=== PATIENT | female | born 1985 | race Caucasian/White ===

== ENCOUNTER → 2016-11-17 | Outpatient (CLI) | payer OTHER ==
--- NOTE | 2016-11-17 14:00 | US ---
November 17, [address] Jem Guzman, Thank you for requesting a ultrasound to evaluate anatomy for your patient, Mrs. Wu. As y ou know, Rebeka is a 31 year old G 2, P 1001 with a gil dating 21 w 3 d; GRETA of 08/03 by 6 week ultrasound. Aneuploidy screening was not performed. ULTRASOUND Number of fetuses: 1 Placental location: Posterior; no evidence of previa Placental cord insertion: Intraplacental presentation: Transverse Cervix: 5.0 cm viewed transabdominally Maximum Vertical Pocket: 2.9 cm The adnexa were evaluated. No pathology was seen. Right ovary is visualized and seen as normal. It measures 1.5 x 1.5 x 2.0 cm. Left ovary is not seen on today's ultrasound. MEASUREMENTS: Biparietal diameter: 48 mm 20 weeks, 4 days Head circumference: 186 mm 21 weeks, 0 days Abdominal circumference: 159 mm 21 weeks, 1 days Femur length: 36 mm 21 weeks, 3 days Humerus length: 34 mm 21 weeks, 4 days Transcerebellar diameter: 22 mm 21 weeks, 0 days Average ultrasound age: 21 weeks, 1 days Estimated weight: 399 gm weight percentile: 28% ANATOMY Supratentorial brain: Normal including views of the falx, cavum septum pellucidum and choroids Lateral Ventricle: Normal, measuring 5.6 mm Posterior fossa: Normal including the cerebellum and cisterna magna Spine: Normal Nuchal fold: 5.6 mm normal Face: Normal views of the lip and nose area Profile: Normal Palate: Normal appearance of the alveolar ridge Heart: Four Chamber View: Normal including the intraventricular Septum LVOT: Limited but appears correctly oriented RVOT: Limited but appears correctly oriented 3VV: Normal Tracheal View: Suboptimal Aortic Arch: Seen Ductal Arch: Seen SVC/IVC: Suboptimal Heart Rate 143 bpm Diaphragm: Normal appearance without overt abnormality detected Stomach: Normal Umbilical cord insertion: Normal Right kidney: Normal Left kidney: Normal Bladder: Normal Number of cord vessels: Three Upper extremities: Normal Lower extremities: Normal Gender: Undisclosed IMPRESSION: 1. Intrauterine at 21 w 3 d, ultrasound is consistent with her established GRETA of 03/27/17 . 2. Normal anatomical survey with some limited extended cardiac views 3. Cervical length is normal at 5.0 cm without evidence of insufficiency. RECOMMENDATIONS: I was pleased to review today's ultrasound with your patient, Rebeka. I reassured her that the bab y is growing appropriately with normal amniotic fluid volume. Our detailed review of the anato my did not reveal any overt abnormalities. Some of the extended cardiac views were limited sec ondary to acoustic shadowing and position. Future ultrasound and consultation is left to your clinical discretion. Thank you for allowing us the opportunity to evaluate your patient. Should you have any further ques tions or concerns please do not hesitate to contact me. Low risk; no E&M. Rima De MD Intelligence Senior Sergeant Maternal Medicine Diagnosis Department of Obstetrics & Gynecology [facility]
--- NOTE | 2016-11-17 17:52 | US ---
Ultrasound Obstetric second trimester, greater than 14 weeks Indication: Growth and anatomy evaluation. The estimated gestational age by LMP is 21 weeks and 3 d ays yielding an EDC of March 27, 2017. Comparison: None. Findings: Number: 1 Presentation: Transverse Placental Location: Posterior without previa Cervix: 5 cm MVP: 2.9 cm Heart Rate: 143 bpm. Right ovary measures 2 x 1.5 x 1.5 cm. Left ovary not visualized. Biometry: Biparietal Diameter: 48.02 mm 20 weeks, 4 days Head Circumference: 185.89 mm 21 weeks, 0 days Abdominal Circumference: 158.76 mm 21 weeks, 1 days Femur Length: 35.73 mm 21 weeks, 3 days Humerus Length: 33.80 mm 21 weeks, 4 days Transcerebellar Diameter: 22.39 mm 21 weeks, 0 days HC/AC: 1.17 (1.06-1.25) FL/BPD: 74% FL/AC: 23% Average Ultrasound Age: 21 weeks, 1 days EDC Based on Today's Average Ultrasound Age: March 29, 2017 Estimated weight is 399 gms +/- 58 gms. The estimated weight is at the 28 % based on previous dating. ANATOMY SURVEY: Supratentorial Brain: Normal Posterior Fossa: Normal Spine: Normal Nuchal fold: Normal Nose and Lips: Normal Facial Profile: Normal Heart: Four chamber heart. 143 bpm. Intact intraventricular septum. Cardiac Outflow Tracts: Limited Stomach: Normal Umbilical Cord Insertion: Normal Kidneys: Normal, no pyelectasis Bladder: Normal Number of Cord Vessels: Three Upper Extremities: Visualized Lower Extremities: Visualized. Impression: 1. Living gil in transverse presentation. 2. Size concordant with dates. 3. No overt anomalies detected. Limited cardiac views. 4. Please see Dr. Rima eD's consult and recommendations.
== END ==
LOC: FIMAGING 12:05
PROVIDERS: ATTEND Obstetrics & Gynecology
DX: Z36 Encounter for antenatal screening of mother (principal); Z3A.21 21 weeks gestation of pregnancy

== ENCOUNTER → 2016-12-17 | Outpatient (CLI) | payer OTHER | LOC: FIMAGING 09:32 | PROVIDERS: ATTEND Obstetrics & Gynecology | DX: Z34.82 Encounter for supervision of other normal pregnancy, second trimester (principal); Z3A.25 25 weeks gestation of pregnancy ==

== ENCOUNTER 2017-01-06 13:08 | Observation (INO) | payer OTHER ==
[2017-01-06 14:52] LABS: COLOR YELLOW; LEUKOCYTE ESTERASE,URINE TRACE (NEGATIVE); NITRITE,URINE NEGATIVE (NEGATIVE)
[2017-01-06 15:04] LABS: BACTERIA NONE SEEN /hpf (NONE SEEN); MUCUS NONE SEEN /lpf (NONE-1+); YEAST NONE SEEN /hpf (NONE SEEN)
--- NOTE | 2017-01-06 17:49 | SOAPPROG ---
SOAP Progress Note Assessment/Plan: Assessment: at 28w4d No e/o PPROM No e/o PTL Round ligament pain status reassuring Plan: Discharge home Pending UA/Cx and BV swab Pending GBS fFN was collected but not sent given long/closed cervix and no contractions on toco Return if symptoms do not improve or develops new symptoms Follow-up with Dr. PANDEY as scheduled Belly band for RLP Consider pelvic PT 01/06/17 17:48 01/06/17 17:50 01/06/17 17:56 Subjective: Pt is a healthy at 28w4d, here for leaking fluid x 4 days and new lower pelvic pressure and cramping today, somewhat like a period cramp. No bleeding. Active baby. Fluid she knows is some urine, but also not sure if anything else. Does wear a pad, somewhat yellow in color, no odor, no itching, burning. complicated by: QUIRINOEMANI Kinney N. [id number] 12/24/2016 08:03 AM Page: 10/21 PROBLEM DETAIL Priority Problem Detail PCOS was on metformin through first trimester subclinical hypothyroidism followed by endo history of depression on zoloft, monitor mood closely flu vaccine received Objective: Vitals: Reviewed, WNL FHR: baseline 130-140, moderate heidi, + acc, no decel [place]: no contractions Gen: NAD, alert, AOx4 Abd: gravid, soft. Able to elicit pain in round ligaments with movement of uterus SSE: physiologic discharge. No pool. Cervix closed. TVUS: cervix long/closed, no funnel, 5.76 cm. Vertex Abd US: Active fetus. JOHANN 12.6 cm with DVP = 4.76 cm Micro: Neg fern SVE: long/closed ICD10 Worksheet Patient Problems: Problems Problem Status Onset Round ligament pain Acute
== END 2017-01-06 14:28 | disposition home or self-care (01) ==
LOC: FLD 13:08
PROVIDERS: ADMIT Obstetrics & Gynecology; ATTEND Obstetrics & Gynecology
DX: O26.899 Other specified pregnancy related conditions, unspecified trimester (principal); Z3A.28 28 weeks gestation of pregnancy
CPT/HCPCS: 59025; 76815; G0378

== ENCOUNTER → 2017-01-25 | Outpatient (CLI) | payer OTHER | LOC: FIMAGING 14:35 | PROVIDERS: ATTEND Obstetrics & Gynecology | DX: O36.63X1 Maternal care for excessive fetal growth, third trimester, fetus 1 (principal); Z3A.31 31 weeks gestation of pregnancy; Z87.59 Personal history of other complications of pregnancy, childbirth and the puerperium ==

== ENCOUNTER 2017-02-16 16:44 | Observation (INO) | payer OTHER | END 2017-02-16 19:28 | disposition home or self-care (01) | LOC: FLD 16:44 | PROVIDERS: ADMIT Midwife; ATTEND Midwife | DX: O76 Abnormality in fetal heart rate and rhythm complicating labor and delivery (principal); Z3A.00 Weeks of gestation of pregnancy not specified | CPT/HCPCS: G0378 ×2 ==

== ENCOUNTER → 2017-03-09 | Outpatient (CLI) | payer OTHER | LOC: FIMAGING 13:04 | PROVIDERS: ATTEND Obstetrics & Gynecology | DX: Z34.93 Encounter for supervision of normal pregnancy, unspecified, third trimester (principal); Z3A.37 37 weeks gestation of pregnancy ==

== ENCOUNTER 2017-03-21 17:00 | Inpatient (IN) | payer OTHER ==
[2017-03-21] MEDS ORDERED: IBUPROFEN 600 MG TAB PO PRN (17:09)
[2017-03-21] MEDS ORDERED: OLIVE OIL 118 ML BTL MISC PRN (17:09)
[2017-03-21] MEDS ORDERED: OXYTOCIN/RINGERS LACTATE 1,000 ML IV PRN (17:09)
[2017-03-21] MEDS ORDERED: LR 1,000 ML IV PRN (17:09)
[2017-03-21] MEDS ORDERED: TERBUTALINE SULFATE 1 MG/ML VIAL IV PRN (17:09)
[2017-03-21] MEDS ORDERED: EPSOM SALT 454 GM TP PRN (17:09)
[2017-03-21] MEDS ORDERED: ZOLPIDEM TARTRATE 5 MG TAB PO PRN (18:16)
[2017-03-21] MEDS ORDERED: diphenhydrAMINE 25 MG CAP PO PRN (18:16)
--- NOTE | 2017-03-21 18:20 | OBPROG ---
OBG Labor Progress Note Assessment/Plan: Assessment: at 39w2d here for elective IOL status reassuring GBS neg See scanned H&P for full details of care Plan: Admit to L&D FB placed Start pitocin at 0500 Routine orders 03/21/17 18:18 Subjective: Ready for induction. History of 9# baby and this baby's head was already measuring 41 weeks so she is nervous about the size. Objective: VS reviewed, WNL Gen: NAD Resp: unlabored CV: RRR Abd: gravid, soft, nontender, vertex and 9# by brad's SVE: /-2/vtx/intact FB placed 30 ml NS Moore Current Contraction Pattern: Irregular FHR (bpm): 120 FHR Pattern Variability: Moderate FHR Category: 1 Membranes: Intact Oxytocin Orders Assessment - Pre-Induction/Augmentation Assessment Gestational Age: 39 week(s) and 1 day(s) ICD10 Worksheet Patient Problems: Problems Problem Status Onset Elective induction of labor planned Acute - ICD10 Problem Qualifiers (1) Elective induction of labor planned
[2017-03-21 18:28] LABS: % IMMATURE GRANULYOCYTES 0.8 % (0.0-1.1); ABSOLUTE IMMATURE GRANULOCYTES 0.11 10^3/uL (0.00-0.10); ADD DIFF? NO; ADD MORPH? NO; ADD SCAN? NO; ATYPICAL LYMPHOCYTE FLAG 0 (0-99); FRAGMENT RBC FLAG 0 (0-99); HEMATOCRIT 36.4 % (38.0-47.0); HEMOGLOBIN 12.3 g/dL (12.6-16.3); LEFT SHIFT FLG 0 (0-99); LIPEMIA HEMOLYSIS FLAG 90 (0-99); MEAN CELL HEMOGLOBIN CONCENTR. 33.8 g/dL (32.4-36.7); MEAN CELL VOLUME 82.7 fL (81.5-99.8); MEAN PLATELET VOLUME 11.4 fL (8.7-11.7); PLATELET CLUMPS FLAG 10 (0-99); PLATELET COUNT 267 10^3/uL (150-400); RED CELL DISTRIBUTION WIDTH 13.2 % (11.5-15.2)
[2017-03-21] MEDS ORDERED: CALCIUM CARBONATE 500 MG CHEWABLE TAB PO PRN (18:47)
[2017-03-22] MEDS: LEVOTHYROXINE 25 MCG TAB PO SCH (04:09)
[2017-03-22] MEDS ORDERED: LIDOCAINE 1% 300 MG/30 ML SDV ONE (04:19)
[2017-03-22] MEDS ORDERED: OXYTOCIN 10 UNIT/ML VIAL ONE (04:20)
[2017-03-22] MEDS ORDERED: MISOPROSTOL 200 MCG TAB ONE (04:20)
[2017-03-22] MEDS ORDERED: AMMONIA AROMATIC 1 EACH AMP IH ONE (04:20)
[2017-03-22] MEDS ORDERED: TERBUTALINE SULFATE 1 MG/ML VIAL ONE (04:20)
[2017-03-22] MEDS ORDERED: OLIVE OIL 118 ML BTL ONE (04:20)
[2017-03-22] MEDS ORDERED: OXYTOCIN/LR *STANDARD DOSE PROTOCOL IV SCH (05:00)
[2017-03-22] MEDS ORDERED: SERTRALINE HCL 50 MG TAB PO SCH (09:00)
[2017-03-22] MEDS ORDERED: fentaNYL 2MCG/ML/BUP 0.1% RTU 100 ML BAG EP ONE (10:43)
[2017-03-22] MEDS ORDERED: PHENYLEPHRINE HCL 100 MCG/ML SYR ONE (10:44)
[2017-03-22] MEDS ORDERED: BUPIVACAINE 0.25% 30 ML SDV ONE (10:44)
[2017-03-22] MEDS ORDERED: fentaNYL 100 MCG/2 ML INJ ONE (10:45)
[2017-03-22] MEDS ORDERED: PHENYLEPHRINE HCL 100 MCG/ML SYR IVP PRN (11:40)
[2017-03-22] MEDS ORDERED: ONDANSETRON 4 MG/2 ML VIAL IVP PRN (11:40)
--- NOTE | 2017-03-22 11:45 | PREANESOB ---
Obstetric Pre-Anesthesia Info - General Info Proposed Procedure: Labor and delivery with pitocin. : 2 Para: 1 WBD: 39 - Info Status: Full Term Monitors: External FHR Baseline (bpm): 135 FHR Pattern: Reassuring - Labor Status Cervical Dilation per last OB SVE: 4 Pitocin: In Use Indications for Labor Analgesia: Induction of Labor, Pain Control Labor Epidural: Proposed Anesthesia ROS: Prior labor epidural. Allergies/Adverse Reactions: Allergy/AdvReac Type Severity Reaction Status Date / Time acetaminophen Allergy Itching of Verified 10/05/13 07:12 throat Home Medications: Medication Instructions Recorded Fish Oil 2,000 mg PO DAILY 10/05/13 Iron 325 mg PO DAILY 10/05/13 1 tab PO DAILY 10/05/13 VITAMIN D 5,000 iunits PO DAILY 10/05/13 Synthroid 25 mcg (*) 1 tab PO DAILY 03/21/17 Zoloft 100mg (*) 150 mg PO DAILY 03/21/17 Visit Medications: Generic Name Dose Route Start Last Admin Trade Name Freq PRN Reason Stop Dose Admin Calcium Carbonate 1,000 mg 03/21/17 18:47 Tums PO 09/17/17 18:46 Q4 PRN heartburn Diphenhydramine HCl 50 mg 03/21/17 18:16 03/21/17 21:06 Benadryl PO 09/17/17 18:15 50 mg HS PRN Administration Sleep/Insomnia Lactated Ringer's 1,000 mls @ 0 mls/hr 03/21/17 17:09 03/22/17 05:00 Lr IV 09/17/17 17:08 1,000 mls PRN PRN Administration SEE PROTOCOL CONDITIONS Protocol Per Protocol Oxytocin/Lactated Ringer's 1,000 mls @ 150 mls/hr 03/21/17 17:09 Pitocin 20 Units/Lr (Premix) IV PRN PRN Post- bleeding Oxytocin/Lactated Ringer's 500 mls @ 0 mls/hr 03/22/17 05:00 03/22/17 05:00 Pitocin 30 Units/Lr (Premix) IV 09/18/17 04:59 500 mls CONT SRINIVAS Administration Protocol Per Protocol Ibuprofen 600 mg 03/21/17 17:09 Motrin PO 09/17/17 17:08 Q6HRS PRN post , inflammation Levothyroxine Sodium 25 mcg 03/22/17 06:00 03/22/17 04:09 Synthroid PO 09/18/17 05:59 25 mcg DAILY AT 6AM SRINIVAS Administration Magnesium Sulfate 454 gm 03/21/17 17:09 Epsom Salt TP 09/17/17 17:08 PRN PRN perineal discomfort [place] Oil 118 ml 03/21/17 17:09 Sweet Oil MISC 09/17/17 17:08 ONCE PRN preneal massage Sertraline HCl 100 mg 03/22/17 09:00 Zoloft PO 09/18/17 08:59 DAILY SRINIVAS Sertraline HCl 50 mg 03/22/17 09:00 Zoloft PO 09/18/17 08:59 DAILY SRINIVAS Terbutaline Sulfate 0.25 mg 03/21/17 17:09 Brethine IV 09/17/17 17:08 ONCE PRN Tachysystole Zolpidem Tartrate 5 mg 03/21/17 18:16 Ambien PO 09/17/17 18:15 HS PRN Sleep/Insomnia Discontinued Medications Generic Name Dose Route Start Last Admin Trade Name Freq PRN Reason Stop Dose Admin Ammonia (Aromatic Spirit) Confirm 03/22/17 04:20 Ammonia Aromatic Administered 03/22/17 04:21 Dose 1 each IH .STK-MED ONE Bupivacaine HCl Confirm 03/22/17 10:44 Sensorcaine 0.25% Sdv Administered 03/22/17 10:45 Dose 30 ml .ROUTE .STK-MED ONE Fentanyl Confirm 03/22/17 10:45 Sublimaze Administered 03/22/17 10:46 Dose 100 mcg .ROUTE .STK-MED ONE Fentanyl/Bupivacaine HCl Confirm 03/22/17 10:43 Fentanyl/Bupivacaine/Ns 2 Mcg/Ml 0.1% (Premix Administered 03/22/17 10:44 Dose 100 ml EP .STK-MED ONE Lidocaine HCl Confirm 03/22/17 04:19 Lidocaine Hcl 1% Administered 03/22/17 04:20 Dose 300 mg .ROUTE .STK-MED ONE Misoprostol Confirm 03/22/17 04:20 Cytotec Administered 03/22/17 04:21 Dose 1,000 mcg .ROUTE .STK-MED ONE [place] Oil Confirm 03/22/17 04:20 Sweet Oil Administered 03/22/17 04:21 Dose 118 ml .ROUTE .STK-MED ONE Oxytocin Confirm 03/22/17 04:20 Pitocin Administered 03/22/17 04:21 Dose 40 unit .ROUTE .STK-MED ONE Phenylephrine HCl Confirm 03/22/17 10:44 Neosynephrine Administered 03/22/17 10:45 Dose 1,000 mcg .ROUTE .STK-MED ONE Terbutaline Sulfate Confirm 03/22/17 04:20 Brethine Administered 03/22/17 04:21 Dose 1 mg .ROUTE .STK-MED ONE - Anesthesia History Response to Local Anesthetics: Normal Anesthesia & Operative History: No Prior Problems - Social History Substance Use/Abuse: Denies - Focused Exam Blood Pressure: 145/82 Heart Rate: 64 Height/Weight (Nursing): Height 176.53 cm Weight 101.605 kg Physical Exam: Within normal limits. ASA Status: II Labs: 03/21/17 18:15 Patient ABO/Rh O POSITIVE 03/21/17 18:15 - Plan Anesthetic Plan: CSE Consent Signed and on Chart: Yes Patient/Guardian Understands and Agrees to Plan: Yes
--- NOTE | 2017-03-22 11:46 | POSTANESTH ---
Post Anesthetic Evaluation Cardiovascular Status: Normal, Stable Respiratory Status: Normal, Stable, Similar to Pre-op Cond. (Tolerated CSE well , stable after phenylephrine x 1, comfortable.) Level of Consciousness/Mental Status: Can Participate in Eval, Alert and Oriented Pain Control: Adequate, Prn Tx Ordered Nausea/Vomiting Control: Adequate, Prn Tx Ordered Complications Possibly Related to Anesthesia: None Noted
[2017-03-22] MEDS ORDERED: fentaNYL 2MCG/ML/BUP 0.1% RTU 100 ML EP SCH (12:00)
[2017-03-22] MEDS ORDERED: LR 500 ML IV SCH (12:00)
--- NOTE | 2017-03-22 12:45 | OBPROG ---
OBG Labor Progress Note Assessment/Plan: Assessment: Pt is a 32 y/o at 39+2 weeks EGA admitted for elective IOL - hx macrosomia Plan: 1) status reassuring 2) Pain well controlled with Blayne 3) Labor progressing well, continue pitocin 4) GBS neg 03/22/17 12:44 Subjective: Pt comfortable with BLAYNE in place Objective: 03/21/17 18:15 Patient ABO/Rh O POSITIVE 03/21/17 18:15 Temp Pulse Resp BP Pulse Ox 64 145/82 H 03/22/17 11:45 03/22/17 11:45 - SVE Dilation (cm): 6 Effacement (%): 90 Station: -2 Moore Current Contraction Pattern: Regular FHR (bpm): 130 FHR Pattern Variability: Moderate FHR Category: 1 Membranes: AROM (this AM (note on paper; [employer] not working)) Amniotic Fluid Color: Clear Oxytocin Orders Assessment - Pre-Induction/Augmentation Assessment Gestational Age: 39 week(s) and 1 day(s) ICD10 Worksheet Patient Problems: Problems Problem Status Onset Elective induction of labor planned Acute
--- NOTE | 2017-03-22 15:19 | OBPROG ---
OBG Labor Progress Note Assessment/Plan: Assessment: Pt is a 32 y/o at 39+2 weeks EGA admitted for elective IOL - hx macrosomia Plan: 1) status over all reassuring with moderate variability present - will start amnioinfusion for variable decels. 2) Pain well controlled with TIFFANIE 3) Labor progressing well, continue pitocin 4) GBS neg 03/22/17 15:19 Subjective: Pt feeling nauseous, otherwise, comfortable. Objective: 03/21/17 18:15 Patient ABO/Rh O POSITIVE 03/21/17 18:15 Temp Pulse Resp BP Pulse Ox 64 145/82 H 03/22/17 11:45 03/22/17 11:45 - SVE Dilation (cm): 8 Effacement (%): 90 Station: 0 Moore Current Contraction Pattern: Regular FHR (bpm): 130 FHR Pattern Variability: Moderate FHR Category: 2 (variable decels w/ contractions. IUPC placed easily for better monitoring) Amniotic Fluid Color: Clear - Procedures Non-surgical Procedures: Amniotomy, IUPC Oxytocin Orders Assessment - Pre-Induction/Augmentation Assessment Gestational Age: 39 week(s) and 1 day(s) ICD10 Worksheet Patient Problems: Problems Problem Status Onset Elective induction of labor planned Acute
--- NOTE | 2017-03-22 18:21 | OBPROG ---
OBG Labor Progress Note Assessment/Plan: Assessment: Pt is a 32 y/o at 39+2 weeks EGA admitted for elective IOL - hx macrosomia Plan: 1) status over all reassuring with moderate variability present - amnioinfusion appears to have helped decrease the severity of the variable decels. 2) Pain well controlled with TIFFANIE 3) Labor progressing well, will start pushing. Baby OP. 4) GBS neg 03/22/17 18:20 Subjective: Pt feeling urge to push. Objective: 03/21/17 18:15 Patient ABO/Rh O POSITIVE 03/21/17 18:15 Temp Pulse Resp BP Pulse Ox 64 145/82 H 03/22/17 11:45 03/22/17 11:45 - SVE Dilation (cm): 10 Effacement (%): 100 Station: +1 Moore Current Contraction Pattern: Regular FHR (bpm): 140 FHR Pattern Variability: Moderate FHR Category: 1 Membranes: AROM Amniotic Fluid Color: Clear - Procedures Non-surgical Procedures: Amniotomy, IUPC Oxytocin Orders Assessment - Pre-Induction/Augmentation Assessment Gestational Age: 39 week(s) and 1 day(s) ICD10 Worksheet Patient Problems: Problems Problem Status Onset Elective induction of labor planned Acute
--- NOTE | 2017-03-22 19:23 | OBDEL ---
Info Type: Vaginal GBS+: No Indications for Delivery: Elective Vaginal Delivery - Labor and Delivery Onset of Contractions Date: 03/21/17 Onset of Contractions Time: 22:00 Onset of Contractions Type: Induced Rupture of Membranes Date: 03/22/17 Rupture of Membranes Time: 08:48 Rupture of Membranes Type: Artificial Amniotic Fluid Color: Clear Dilation Complete Date: 03/22/17 Dilation Complete Time: 17:45 Placenta Delivery Date: 03/22/17 Placenta Delivery Time: 19:03 Total Hours of Labor: 21 Non-surgical Procedures: Amniotomy, IUPC Laceration: 2nd Degree Vaginal Sponge Count Correct: Yes Vaginal Needle Count Correct: Yes Vaginal Sweep Performed: Yes EBL: 400 cc Delivery Events: None - Medications Labor Augmentation/Induction Methods Used: Pitocin Labor Augmentation/Induction Indication: Elective Data Moore Delivery Date: 03/22/17 Delivery Time: 18:55 GRETA: 03/27/17 Gestational Age: 39 week(s) and 2 day(s) Sex of : Female Score (1 Min): 7 Score (5 Min): 8 (Delivery was uncomplicated. Baby delivered in NEW position, placed on maternal abdomen, delayed cord clamping for 1.5 minutes approximately when peds nurse wanted to take baby to the warmer. Cord clamped x 2 and cut; cord gases and cord blood obtained, placenta delivered and intact; mild atony noted, treated with IV pitocin with improvement noted. Small 2nd degree repaired and hemostatic.) ICD10 Worksheet Patient Problems: Problems Problem Status Onset Elective induction of labor planned Acute
[2017-03-22] MEDS ORDERED: SIMETHICONE 80 MG TAB CHEW PO PRN (19:27)
[2017-03-22] MEDS ORDERED: HYDROCORTISONE 0.5% CREAM TP PRN (19:27)
[2017-03-22 19:40] LABS: PH VENOUS CORD BLOOD 7.33 (7.20-7.42)
[2017-03-22] MEDS: NAPROXEN SODIUM 220 MG TAB PO PRN (20:02)
[2017-03-22] MEDS: SERTRALINE HCL 50 MG TAB PO SCH (22:47)
[2017-03-22] MEDS: SERTRALINE HCL 100 MG TAB PO SCH (22:47)
[2017-03-23] MEDS: DOCUSATE SODIUM 100 MG CAP PO PRN ×4 (01:38→21:11)
[2017-03-23] MEDS: LEVOTHYROXINE 25 MCG TAB PO SCH (05:51)
[2017-03-23] MEDS: NAPROXEN SODIUM 220 MG TAB PO PRN ×3 (05:51→21:11)
--- NOTE | 2017-03-23 10:12 | OBPP ---
Progress Note Assessment/Plan: Assessment: now PPD#1 s/p Rh pos, Rub imm Recovering appropriately Plan: Routine pp senior care PPD#2 Subjective: Feels great. Baby is latching. Perineal pain controlled with motrin. No heavy bleeding. No concerns. Objective: 03/23/17 05:45 Patient ABO/Rh O POSITIVE 03/21/17 18:15 Temp Pulse Resp BP Pulse Ox 36.9 C 77 18 125/87 H 97 03/23/17 08:00 03/23/17 08:00 03/23/17 08:00 03/23/17 08:00 03/23/17 08:00 Gen: NAD Resp: unlabored CV: RRR Abd: soft, nontender, uterus firm below U Ext; no edema
[2017-03-23] MEDS: SERTRALINE HCL 100 MG TAB PO SCH (14:22)
[2017-03-23] MEDS: SERTRALINE HCL 50 MG TAB PO SCH (14:22)
[2017-03-23 19:23] VITALS: RESP 16
[2017-03-24] MEDS: LEVOTHYROXINE 25 MCG TAB PO SCH (05:41)
[2017-03-24 08:45] VITALS: O2SAT 95
--- NOTE | 2017-03-24 08:53 | OBPP ---
Progress Note Assessment/Plan: Assessment: Pt is a 32 y/o PPD#2 s/p - doing well, ready for discharge home Plan: 1) Discharge home 2) RI/RH+ 3) F/U in 6 weeks, call sooner if needed. 03/24/17 08:52 Subjective: Pt feeling well, lochia diminishing, pain well controlled. Objective: 03/23/17 05:45 Patient ABO/Rh O POSITIVE 03/21/17 18:15 Temp Pulse Resp BP Pulse Ox 36.1 C 71 16 117/78 95 03/24/17 08:00 03/24/17 08:00 03/24/17 08:00 03/24/17 08:00 03/24/17 08:00 Uterine Position/Fundal Height: At Umbilicus Uterine Tone: Firm Physical Exam - Physical Exam General Appearance: WD/WN, alert, no apparent distress Respiratory: lungs clear Cardiac/Chest: regular rate, rhythm
--- NOTE | 2017-03-24 08:56 | OBGCSDC ---
General Delivery Information - General Info : 2 Para: 2 Delivery Physician/CNM: Marisela Swain Admission Date: 03/21/17 Labs: Patient ABO/Rh O POSITIVE 03/21/17 18:15 Hct 33.5 % (38.0-47.0) L 03/23/17 05:45 Vaginal - Diagnosis Labor: Induced Rupture of Membranes Type: Artificial Amniotic Fluid Color: Clear Laceration: 2nd Degree Delivery Events: None - Operations/Procedures Non-surgical Procedures: Amniotomy, IUPC L&D Analgesia/Anesthesia Type: Epidural - Hospital Course Antepartum: Hypothyroidism, s/p flu and tdap Intrapartum: Uncomplicated, induced electively at 39 weeks, hx macrosomia : No complications - Delivery Non-surgical Procedures: Amniotomy, IUPC L&D Analgesia/Anesthesia Type: Epidural Data Moore Delivery Date: 03/22/17 Delivery Time: 18:55 GRETA: 03/27/17 Gestational Age: 39 week(s) and 4 day(s) Sex of Infant: Female Weight (gm): 3516 g Score (1 Min): 7 Score (5 Min): 8 Discharge Information - Discharge Information Condition: Good Instruction/Follow Up: Six Weeks Discharge Physician/CNM: Marisela Swain
[2017-03-24] MEDS: DOCUSATE SODIUM 100 MG CAP PO PRN (09:11)
[2017-03-24] MEDS: NAPROXEN SODIUM 220 MG TAB PO PRN (09:11)
[2017-03-24 09:37] VITALS: BP 116/77; PULSE 77; TEMP 97.7
[2017-03-24] MEDS: SERTRALINE HCL 50 MG TAB PO SCH (10:40)
[2017-03-24] MEDS: SERTRALINE HCL 100 MG TAB PO SCH (10:40)
== END 2017-03-24 12:31 | disposition home or self-care (01) | DRG 775 ==
LOC: FLD 17:03 → FOB 03-22 20:52
PROVIDERS: ADMIT Obstetrics & Gynecology; ATTEND Obstetrics & Gynecology
PROC: 10907ZC Drainage of Amniotic Fluid, Therapeutic from Products of Conception, Via Natural or Artificial Opening (ICD-10-PCS; principal; 2017-03-22)
PROC: 3E033VJ Introduction of Other Hormone into Peripheral Vein, Percutaneous Approach (ICD-10-PCS; principal; 2017-03-22)
PROC: 10E0XZZ Delivery of Products of Conception, External Approach (ICD-10-PCS; principal; 2017-03-22)
PROC: 0KQM0ZZ Repair Perineum Muscle, Open Approach (ICD-10-PCS; principal; 2017-03-22)
DX: O99.284 Endocrine, nutritional and metabolic diseases complicating childbirth (principal); Z37.0 Single live birth; E03.9 Hypothyroidism, unspecified; Z3A.39 39 weeks gestation of pregnancy; O70.1 Second degree perineal laceration during delivery
CPT/HCPCS: J2370; J2405; J2590; J3010; J3105

== ENCOUNTER → 2017-03-30 | Outpatient (CLI) | payer OTHER | LOC: FLACT 15:11 | PROVIDERS: ATTEND Obstetrics & Gynecology | DX: O92.13 Cracked nipple associated with lactation (principal) | CPT/HCPCS: G0463 ==

== ENCOUNTER → 2017-04-07 | Outpatient (CLI) | payer OTHER | LOC: FLAB 15:05 | PROVIDERS: ATTEND Obstetrics & Gynecology | DX: O92.5 Suppressed lactation (principal) | CPT/HCPCS: G0463 ==

== ENCOUNTER 2018-03-12 09:53 | Emergency (ER) | payer OTHER ==
[2018-03-12 10:03] VITALS: BP 114/75
[2018-03-12] MEDS ORDERED: PROPARACAINE/FLUORESCEIN SOD 5 ML OPHT.BTL OP ONE (10:16)
--- NOTE | 2018-03-12 10:21 | EDPHY ---
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 Hetal Llanos who recommended oral Valtrex . She comes to the ER today, Wednesday, complaining of worsening of the lesions. The orbit itself is unremarkable, she notes no pain with extraocular movements, no visual acuity changes, no photophobia, no foreign body sensation, no exposure to high speed projectiles, no injection, no discharge. PHYSICAL EXAM (Prior to examination, patient consented to physical exam, hands were washed and my usual and customary physical exam procedures followed) 1) GENERAL: Well-developed, well-nourished, alert and oriented. Appears to be in no acute distress. 2) HEAD: Normocephalic 3) OCULAR EXAM: Visual Acuity: noted from Nurse's notes. Pupils:equal round and reactive to light EOMI Lids: no edema or swelling, upper and lower lids were everted and no foreign bodies were visualized, no areas of increased fluorescein uptake. Skin: no proptosis, no periorbital erythema or swelling, no vesicles, no pain with extraocular movements. Conjunctivae: not injected, no discharge, negative Neville test. Cornea: exam with fluorescein shows no areas of increased uptake, No dendritic appearance to the cornea. Lower lid margin vesicular lesions noted Anterior chamber:normal, no hyphema or hypopyon 4) LUNGS: Breathing comfortably. 5) ENT: Oropharynx is clear with no lesions. Symmetrical faces no evidence of Lee's palsy. Ear is clear including external auditory canal with no evidence of Araseli Griffith syndrome. No lesions on the scalp. No forehead lesions. No cheek lesions. No facial droop. Smoking Status: Never smoked Constitutional: Initial Vital Signs Temperature (C) 36.4 C 03/12/18 10:00 Heart Rate 98 03/12/18 10:00 Respiratory Rate 16 03/12/18 10:00 Blood Pressure 114/75 03/12/18 10:00 O2 Sat (%) 97 03/12/18 10:00 O2 Delivery Mode Room Air Allergies/Adverse Reactions: acetaminophen Allergy (Verified 10/05/13 07:12) Itching of throat Home Medications: Medication Instructions Recorded Qsymia 11.25 mg-69 mg Capsule 03/12/18 Valtrex (*) 03/12/18 Zoloft 100mg (*) 03/12/18 oxyCODONE IR [Oxycodone Ir (*)] 5 mg PO Q6 #10 tab 03/12/18 predniSONE [Prednisone] 20 mg PO DAILY #15 tablet 03/12/18 MDM/Departure - MDM Medications Given: Discontinued Medications Proparacaine HCl/Fluorescein Sodium (Flucaine) 2 drops OP EDNOW ONE Stop: 03/12/18 10:17 Last Admin: 03/12/18 11:02 Dose: 1 drop ED Course/Re-evaluation: 10:46 a.m.: Phone consultation with on-call ophthalmology Dr. Sumi Cartagena, covering for Dr Mejia, specifically inquired about ophthalmic steroids which he recommended against. Plan will be continuing Valtrex. I am starting the patient on oral steroid adjuvant therapy. Doubt Araseli Griffith. Doubt neurologic complications at this time. The importance of close follow-up has been stressed on numerous instances. Today is Wednesday of the weekend. Recommend she follow up with her dye maker on Wednesday. Usual customary ophthalmological precautions instructions provided. Care of patient under supervision of secondary supervising physician Dr Whiting with whom I discussed case. - Depart Disposition: Home, Routine, Self-Care Clinical Impression: Herpes zoster virus infection of face and ear nerves Condition: Good Instructions: Shingles (ED) Additional Instructions: Return to the ER if you develop pain with eye movements, change in visual acuity or any other symptoms that concern you. Prescriptions: oxyCODONE IR [Oxycodone Ir (*)] 5 mg PO Q6 #10 tab predniSONE [Prednisone] 20 mg PO DAILY #15 tablet Referrals: HETAL MEJIA [Non Staff Provider ()] - 03/15/18
== END 2018-03-12 11:10 | disposition home or self-care (01) ==
DX: B02.9 Zoster without complications (principal)